=== PATIENT | male | born 1975 | race Caucasian/White ===

== ENCOUNTER 2020-03-09 21:32 | Observation (INO) | payer OTHER ==
[2020-03-09 22:23] LABS: Basophils # (A) 0.1 k/uL (0-0.2); Basophils % (A) 1 %; Eosinophils # (A) 0.2 k/uL (0-0.7); Eosinophils % (A) 1 %; HCT 51.5 % (39.0-53.0); HGB 17.6 gm/dL (13.0-17.5); Lymphocytes # (A) 4.6 k/uL (1.0-4.8); Lymphocytes % (A) 37 %; MCH 32.2 pg (25.0-35.0); MCHC 34.2 g/dL (31.0-37.0); Mean Platelet Volume 7.1; Monocytes # (A) 0.5 k/uL (0-1.0); Monocytes % (A) 4 %; Neutrophils # (A) 7.1 k/uL (1.3-7.7); Neutrophils % (A) 56 %; Platelet Count 348 k/uL (150-450); RBC 5.48 m/uL (4.30-5.90); RDW 13.1 % (11.5-15.5); WBC 12.5 k/uL (3.8-10.6)
[2020-03-09] MEDS ORDERED: NICOTINE 14MG/24HR PATCH TRANSDERM STA (22:24)
[2020-03-09 22:35] LABS: ALT 16 U/L (4-49); AST 32 U/L (17-59); African American GFR (CKD) >90 (>60 ml/min/1.73 sqM); Alkaline Phosphatase 70 U/L (38-126); Anion Gap 16 mmol/L; Blood Urea Nitrogen 10 mg/dL (9-20); Carbon Dioxide 21 mmol/L (22-30); Chloride 109 mmol/L (98-107); Glucose 100 mg/dL (74-99); Non-African American GFR(CKD) >90 (>60 ml/min/1.73 sqM); Potassium 3.9 mmol/L (3.5-5.1); Sodium 146 mmol/L (137-145); Total Bilirubin 0.6 mg/dL (0.2-1.3); Total Protein 7.8 g/dL (6.3-8.2)
[2020-03-09] MEDS ORDERED: HALOPERIDOL LACTATE 5 MG/ML 1 ML VIAL IVP STA (22:56)
[2020-03-09] MEDS ORDERED: diphenhydrAMINE 50 MG/ML 1 ML VIAL IVP STA (22:56)
[2020-03-09] MEDS ORDERED: LORazepam 2 MG/ML INJ IV STA (22:56)
[2020-03-09 23:00] LABS: Alcohol 331 mg/dL
[2020-03-10] MEDS ORDERED: NALOXONE 0.4 MG/ML 1 ML VIAL IV PRN (00:01)
--- NOTE | 2020-03-10 00:01 | ED ---
Psych HPI - General Chief Complaint: Psychiatric Symptoms Stated Complaint: Mental Health Time Seen by Provider: 03/09/20 21:45 Source: patient, police Mode of arrival: ambulatory - History of Present Illness Initial Comments: 44-year-old male with no reported past history presents emergency department accompanied by [facility] police for reported suicidal ideations and a ttempt. It was reported that the patient drinks daily, was drinking tonight and was having thoughts of suicide. His plan was to hang himself. He had made a noose however reports not placing the noose around his neck. It is unknown who called EMS however police arrived on scene and transferred the patient in. He states that he has been drinking daily. He quit his job today. Reports that he is likely from his . Patient has no children. Reports to feeling hopeless. Denies homicidal ideations or hallucinations. States he's been depressed for a significant period of time however never told anyone about it. Denies any other substance abuse. No alleviating, precipitating or modifying factors - Related Data Home Medications Medication Instructions Recorded Confirmed Acetaminophen [Tylenol] 1,000 mg PO Q4-6H PRN 03/10/20 03/10/20 Doxylamine Succinate [Unisom] 25 mg PO HS PRN 03/10/20 03/10/20 Omeprazole Magnesium [PriLOSEC OTC] 20 mg PO DAILY PRN 03/10/20 03/10/20 Previous Rx's Medication Instructions Recorded Escitalopram [Lexapro] 10 mg PO DAILY #30 tab 03/11/20 Folic Acid 1 mg PO DAILY@1200 #30 tab 03/11/20 Thiamine [Vitamin B-1] 100 mg PO DAILY #30 tab 03/11/20 Allergies Allergy/AdvReac Type Severity Reaction Status Date / Time No Known Allergies Allergy Verified 03/10/20 13:04 Review of Systems ROS Statement: Those systems with pertinent positive or pertinent negative responses have been documented in the HPI. ROS Other: All systems not noted in ROS Statement are negative. Past Medical History Past Medical History: No Reported History History of Any Multi-Drug Resistant Organisms: None Reported Past Surgical History: No Surgical Hx Reported Past Psychological History: Anxiety, Depression Smoking Status: Current every day smoker Past Alcohol Use History: Abuse, Daily Past Drug Use History: None Reported - Past Family History Mother History Unknown: Yes General Exam Limitations: no limitations General appearance: alert, appears intoxicated, anxious Head exam: Present: atraumatic, normocephalic, normal inspection Eye exam: Present: normal appearance, PERRL, EOMI. Absent: scleral icterus, conjunctival injection, periorbital swelling ENT exam: Present: normal exam, mucous membranes moist Neck exam: Present: normal inspection. Absent: tenderness, meningismus, lymphadenopathy Respiratory exam: Present: normal lung sounds bilaterally. Absent: respiratory distress, wheezes, rales, rhonchi, stridor Cardiovascular Exam: Present: normal rhythm, tachycardia, normal heart sounds. Absent: systolic murmur, diastolic murmur, rubs, gallop, clicks GI/Abdominal exam: Present: soft, normal bowel sounds. Absent: distended, tenderness, guarding, rebound, rigid Extremities exam: Present: normal inspection, full ROM, normal capillary refill. Absent: tenderness, pedal edema, joint swelling, calf tenderness Back exam: Present: normal inspection Neurological exam: Present: alert, oriented X3, CN II-XII intact Psychiatric exam: Present: depressed, agitated Skin exam: Present: warm, dry, intact, normal color. Absent: rash Course Vital Signs 03/09/20 03/10/20 21:44 00:52 Temperature 98.4 F 98.1 F Pulse Rate 117 H 99 Respiratory 18 18 Rate Blood Pressure 148/98 116/76 O2 Sat by Pulse 96 96 Oximetry Medical Decision Making - Medical Decision Making Upon arrival patient is placed in room 14. He is petitioned by the portable grinding machine operator. Patient admits to me that he is depressed and suicidal. Laboratory studies were conducted. Patient alcohol level is 313. Because of the significant elevation he was admitted to [facility]. Discussed the case with Corinne who accepted admission. I will place psychiatry on consult. Patient has a sitter at bedside. He was given 50 mg of Benadryl, 0.5 mg of Haldol and 2 mg Ativan for agitation. I will place him on [facility] protocol. Patient was transported to floor in stable condition - Lab Data Result diagrams: 03/11/20 08:04 03/11/20 08:04 Lab Results 03/09/20 03/09/20 03/09/20 Range/Units 22:08 22:08 23:50 WBC 12.5 H (3.8-10.6) k/uL RBC 5.48 (4.30-5.90) m/uL Hgb 17.6 H (13.0-17.5) gm/dL Hct 51.5 (39.0-53.0) % MCV 94.0 (80.0-100.0) fL MCH 32.2 (25.0-35.0) pg MCHC 34.2 (31.0-37.0) g/dL RDW 13.1 (11.5-15.5) % Plt Count 348 (150-450) k/uL Neutrophils % 56 % Lymphocytes % 37 % Monocytes % 4 % Eosinophils % 1 % Basophils % 1 % Neutrophils # 7.1 (1.3-7.7) k/uL Lymphocytes # 4.6 (1.0-4.8) k/uL Monocytes # 0.5 (0-1.0) k/uL Eosinophils # 0.2 (0-0.7) k/uL Basophils # 0.1 (0-0.2) k/uL Sodium 146 H (137-145) mmol/L Potassium 3.9 (3.5-5.1) mmol/L Chloride 109 H (98-107) mmol/L Carbon Dioxide 21 L (22-30) mmol/L Anion Gap 16 mmol/L BUN 10 (9-20) mg/dL Creatinine 0.88 (0.66-1.25) mg/dL Est GFR (CKD-EPI)AfAm >90 (>60 ml/min/1.73 sqM) Est GFR (CKD-EPI)NonAf >90 (>60 ml/min/1.73 sqM) Glucose 100 H (74-99) mg/dL Calcium 10.0 (8.4-10.2) mg/dL Total Bilirubin 0.6 (0.2-1.3) mg/dL AST 32 (17-59) U/L ALT 16 (4-49) U/L Alkaline Phosphatase 70 (38-126) U/L Total Protein 7.8 (6.3-8.2) g/dL Albumin 5.0 (3.5-5.0) g/dL Urine Color Light Yellow Urine Appearance Clear (Clear) Urine pH 6.0 (5.0-8.0) Ur Specific [place] 1.004 (1.001-1.035) Urine Protein Negative (Negative) Urine Glucose (UA) Negative (Negative) Urine Ketones Negative (Negative) Urine Blood Negative (Negative) Urine Nitrite Negative (Negative) Urine Bilirubin Negative (Negative) Urine Urobilinogen <2.0 (<2.0) mg/dL Ur Leukocyte Esterase Moderate H (Negative) Urine RBC 3 (0-5) /hpf Urine WBC <1 (0-5) /hpf Urine Bacteria Rare H (None) /hpf Urine Opiates Screen Not Detected (NotDetected) Ur Oxycodone Screen Not Detected (NotDetected) Urine Methadone Screen Not Detected (NotDetected) Ur Propoxyphene Screen Not Detected (NotDetected) Ur Barbiturates Screen Not Detected (NotDetected) U Tricyclic Antidepress Not Detected (NotDetected) Ur Phencyclidine Scrn Not Detected (NotDetected) Ur Amphetamines Screen Not Detected (NotDetected) U Methamphetamines Scrn Not Detected (NotDetected) U Benzodiazepines Scrn Not Detected (NotDetected) Urine Cocaine Screen Not Detected (NotDetected) U Marijuana (THC) Screen Not Detected (NotDetected) Serum Alcohol 331 H* mg/dL Disposition Clinical Impression: Suicidal ideation, Depression, Alcohol abuse Disposition: ADMITTED IP TO THIS [facility] Condition: Stable Is patient prescribed a controlled substance at d/c from ED?: No Decision to Admit Reason: Admit from EC Decision Date: 03/10/20 Decision Time: 00:00
[2020-03-10] MEDS ORDERED: LORazepam 2 MG/ML INJ IV PRN ×3 (00:03)
[2020-03-10] MEDS ORDERED: THIAMINE 100 MG/ML 2 ML VIAL IM ONE (00:30)
[2020-03-10 00:45] LABS: Appearance,Urine Clear (Clear); Bacteria,Urine Rare /hpf; Bilirubin,Urine Negative (Negative); Blood,Urine Negative (Negative); Color,Urine Light Yellow; Glucose,Urine (UA) Negative (Negative); Ketones,Urine Negative (Negative); Leukocyte Esterase,Urine Moderate (Negative); Nitrite,Urine Negative (Negative); Protein,Urine Negative (Negative); RBC,Urine 3 /hpf (0-5); Specific Gravity,Urine 1.004 (1.001-1.035); Urobilinogen,Urine <2.0 mg/dL (<2.0); WBC,Urine <1 /hpf (0-5)
[2020-03-10 00:50] LABS: Amphetamine Screen,Urine Not Detected (NotDetected); Barbiturate Screen,Urine Not Detected (NotDetected); Benzodiazepines Screen,Urine Not Detected (NotDetected); Cocaine Screen,Urine Not Detected (NotDetected); Methadone Screen, Urine Not Detected (NotDetected); Opiate Screen,Urine Not Detected (NotDetected); Oxycodone Screen, Urine Not Detected (NotDetected); Phencyclidine Screen,Urine Not Detected (NotDetected); Tricyclic Antidepressant,Urine Not Detected (NotDetected); Urn Cannabinoid Scrn Not Detected (NotDetected)
[2020-03-10] MEDS: SODIUM CHLORIDE 0.9% 1,000 ML IV SCH ×3 (02:08→20:51)
[2020-03-10] MEDS ORDERED: PANTOPRAZOLE 40 MG TABLET PO PRN (15:36)
[2020-03-10] MEDS ORDERED: TEMAZEPAM 15 MG CAP PO PRN (15:37)
[2020-03-10] MEDS ORDERED: HYDROcodone/APAP 5-325MG 1 EACH TAB PO PRN (15:37)
[2020-03-10] MEDS: THIAMINE 100 MG TAB PO SCH (17:13)
[2020-03-10 17:58] LABS: ALT 17 U/L (4-49); AST 40 U/L (17-59); African American GFR (CKD) >90 (>60 ml/min/1.73 sqM); Albumin 4.1 g/dL (3.5-5.0); Alkaline Phosphatase 64 U/L (38-126); Anion Gap 9 mmol/L; Blood Urea Nitrogen 14 mg/dL (9-20); Carbon Dioxide 25 mmol/L (22-30); Chloride 107 mmol/L (98-107); Glucose 89 mg/dL (74-99); Non-African American GFR(CKD) >90 (>60 ml/min/1.73 sqM); Potassium 4.2 mmol/L (3.5-5.1); Sodium 141 mmol/L (137-145); Total Bilirubin 0.9 mg/dL (0.2-1.3); Total Protein 6.5 g/dL (6.3-8.2)
[2020-03-10] MEDS: HEPARIN SODIUM,PORCINE 5,000 UNIT/ML 1 ML VIAL SQ SCH (20:51)
--- NOTE | 2020-03-10 23:25 | HP ---
HISTORY AND PHYSICAL DATE OF SERVICE: 03/10/2020 CHIEF COMPLAINT: Alcohol intoxication. HISTORY OF PRESENT ILLNESS: This 44-year-old gentleman with a past medical history of anxiety, depression, not being followed by any primary physician in the outpatient setting is brought by [facility] Police for reported suicidal ideations and attempt. The patient apparently drank heavily and having thoughts of suicide. The patient was planning to hang himself and he had a noose apparently placed on his neck. EMS was called and subsequently patient was taken to [facility] and admitted for further evaluation and treatment. The patient also had a petition placed. There is no history of any fever or rigors. No history of headache, loss of consciousness or seizures. Alcohol level on admission was 331. PAST MEDICAL HISTORY: History of anxiety, depression, history of alcohol abuse. MEDICATIONS: Medications are: 1. Prilosec OTC 20 mg daily. 2. Tylenol. 3. Unisom. ALLERGIES: Allergies are none. FAMILY HISTORY: No history of heart disease or strokes. SOCIAL HISTORY: History of smoking. Alcohol abuse daily. REVIEW OF SYSTEMS: ENT: No diminished hearing or diminished vision. CARDIOVASCULAR SYSTEM: No angina. RESPIRATORY SYSTEM: No cough or hemoptysis. GI: No nausea. : No dysuria. NERVOUS SYSTEM: No numbness or weakness. ALLERGY/IMMUNOLOGY: No asthma or hayfever. MUSCULOSKELETAL: As mentioned earlier. HEMATOLOGY: No history of anemia. ENDOCRINE: No history of diabetes or hypothyroidism. CONSTITUTIONAL: As mentioned earlier. DERMATOLOGY: Negative. RHEUMATOLOGY: Negative. PSYCHIATRY: As mentioned earlier. PHYSICAL EXAMINATION: The patient is alert and oriented x3. Pulse 98, blood pressure 127/77, respiration 18, temperature 98.1, pulse ox 96% on room air. HEENT: Conjunctivae normal. Oral mucosa moist. NECK: No jugular venous distention. No carotid bruit. No lymph node enlargement. CARDIOVASCULAR: S1, S2 muffled. No S3 or S4. RESPIRATORY: Breath sounds diminished at the bases. No rhonchi. No crackles. ABDOMEN: Soft, nontender. No mass palpable. LEGS: No edema, no swelling. NERVOUS SYSTEM: Higher functions as mentioned. Moves all 4 limbs. No focal motor or sensory deficits. LYMPHATICS: No lymphadenopathy of the neck, axillae or groin. SKIN: No ulcer, rash or bleeding. JOINTS: No active deforming arthropathy. LABS: Labs at this time, WBC 12.5, hemoglobin 17.6, sodium 146. UA noted. Drug screen is negative. Alcohol 331. ASSESSMENT: 1. Acute alcohol intoxication. 2. Depression with possible suicidal ideation. 3. Increased WBC. 4. Increased sodium. 5. History of anxiety, depression. 6. History of nicotine dependence. 7. History of EtOH. 8. FULL CODE. RECOMMENDATIONS AND DISCUSSION: This 44-year-old gentleman who presented with multiple complex medical issues, will monitor the patient closely. Continue the current medications, continue symptomatic treatment. Otherwise I would recommend psychiatric consultation and suicidal precautions. Repeat labs. Overall prognosis extremely guarded because of multiple complex medical issues. Recommend the patient to follow up with primary physician and alcohol rehab as well. putty worker and Case Management Team to be consulted. MELINA / JUDY: [id number] /
--- NOTE | 2020-03-11 01:16 | CONS ---
CONSULTATION PSYCHIATRIC CONSULTATION DATE OF CONSULTATION: 03/10/2020 REASON FOR CONSULTATION: Depression and suicidal ideation. HISTORY OF PRESENT ILLNESS: The patient is 44, , male who presented to the emergency room for alcohol intoxication and suicidal ideation. The patient stated that he was drinking heavily and his plan was to hang himself, but at that time he was intoxicated. The patient stated that he has been overwhelmed as his of 5 years has renal failure and currently on renal dialysis and previous she was in coma for a couple of days. 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 The patient stated that he has been verbally abusive to his , especially when he is drinking. Today he denied any suicidal ideation or intent or plan, but he stated that he does feel hopeless that he will be able to stop drinking. PAST PSYCHIATRIC HISTORY: The patient was in brief counseling 11 years ago after he got his drunk driving ticket. There is no previous suicidal attempt. SUBSTANCE ABUSE HISTORY: Alcohol: He started at age 16 and it has been getting worse over the last 7 months. He is drinking between 8 to 10 beers with couple of shots. The patient has one drunk driving tickets 11 years ago. He never had been in inpatient rehab program. The patient used to smoke marijuana and using cocaine 15 years ago. FAMILY HISTORY OF PSYCHIATRIC ILLNESS: Brother has drinking problem. There is no family member committed suicide. MEDICAL HISTORY: There is no acute medical problem. ALLERGIES: There is no known allergy. His blood alcohol level at the time of the arrival was 313. BRIEF SOCIAL HISTORY: The patient stated that he has been with his for 10 years, but they had been for 5 years. They have no children. His is late stage of renal failure and currently on dialysis. 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 Currently, he left his job. MENTAL STATUS EXAMINATION: The patient appears his stated age. He was alert. Fair hygiene and grooming. He gave good eye contact. He was lying in bed without any agitation. His speech is coherent and goal directed. He denied any suicidal or homicidal ideation or intent or plan and he stated "I do not have any firearm and I just want to live." His speech is fluent and coherent and goal directed. He reported that his mood is anxious. Affect is constricted. He denied any hallucination or delusional. Thought process is logical and goal directed. Memory and concentration are grossly intact. Judgment and insight are fair. IMPRESSION: 1. Alcohol use disorder. 2. Depressive disorder, NOS. Rule out alcohol induced depression. PLAN: At this time, patient does not meet any criteria for inpatient psychiatric admission. Please continue CIWA for alcohol withdrawal. I would recommend to start him on Lexapro 10 mg for anxiety and depression. gospel worker to gather further history from patient's . The patient did agree to be referred to [facility] outpatient for anxiety and alcohol use disorder. Psychiatry will sign off at this point, and please contact if any question. MMODL / IJN: [id number] /
[2020-03-11] MEDS ORDERED: PANTOPRAZOLE 40 MG TABLET PO SCH (07:30)
[2020-03-11] MEDS: THIAMINE 100 MG TAB PO SCH (08:42)
[2020-03-11] MEDS: SODIUM CHLORIDE 0.9% 1,000 ML IV SCH (08:49)
[2020-03-11] MEDS: HEPARIN SODIUM,PORCINE 5,000 UNIT/ML 1 ML VIAL SQ SCH (08:49)
[2020-03-11 08:57] LABS: Basophils % (A) 0 %; Eosinophils # (A) 0.1 k/uL (0-0.7); Eosinophils % (A) 2 %; HCT 41.3 % (39.0-53.0); Lymphocytes # (A) 2.5 k/uL (1.0-4.8); Lymphocytes % (A) 28 %; MCH 31.7 pg (25.0-35.0); MCHC 32.8 g/dL (31.0-37.0); MCV 96.6 fL (80.0-100.0); Mean Platelet Volume 7.5; Monocytes # (A) 0.6 k/uL (0-1.0); Monocytes % (A) 7 %; Neutrophils # (A) 5.5 k/uL (1.3-7.7); Neutrophils % (A) 63 %; Platelet Count 241 k/uL (150-450); RBC 4.27 m/uL (4.30-5.90); RDW 13.2 % (11.5-15.5); WBC 8.8 k/uL (3.8-10.6)
[2020-03-11] MEDS ORDERED: ESCITALOPRAM 10 MG TAB PO SCH (09:00)
[2020-03-11] MEDS ORDERED: NICOTINE 14MG/24HR PATCH TRANSDERM SCH (09:00)
[2020-03-11 09:16] LABS: African American GFR (CKD) >90 (>60 ml/min/1.73 sqM); Anion Gap 6 mmol/L; Blood Urea Nitrogen 13 mg/dL (9-20); Calcium 8.2 mg/dL (8.4-10.2); Carbon Dioxide 24 mmol/L (22-30); Chloride 110 mmol/L (98-107); Glucose 121 mg/dL (74-99); Non-African American GFR(CKD) >90 (>60 ml/min/1.73 sqM); Potassium 3.9 mmol/L (3.5-5.1); Sodium 140 mmol/L (137-145)
[2020-03-11 09:17] LABS: HGB 13.6 gm/dL (13.0-17.5)
[2020-03-11 10:24] VITALS: BP 138/94; PULSE 79; RESP 18; TEMP 97.8
[2020-03-11] MEDS ORDERED: FOLIC ACID 1 MG TAB PO SCH (12:00)
--- NOTE | 2020-03-11 12:33 | P.DS ---
Providers Date of admission: 03/10/20 00:01 Attending physician: Harriet Vaughn Consults: 03/10/20 00:02 Consult Physician Urgent Consulting Provider: Leonie Rizzo Consult Reason/Comments: acute depression, suicide attempt Do you want consulting provider notified?: Already Contacted Primary care physician: Stated None Hospital Course: 44-year-old male came in with severe depression all call abuse and monitored for all call withdrawal patient. Patient doesn't have any withdrawals at this time. Patient was also having active thoughts of suicide on admission because of which the psychiatric valid the patient and they are not recommending any inpatient psychiatric hospitalization. Extensive counseling regarding alcohol use was provided patient withdrawals at much better. Patient will be discharged today. PHYSICAL EXAMINATION: GENERAL: The patient is alert and oriented x3, not in any acute distress. Well developed, well nourished. HEENT: Pupils are round and equally reacting to light. EOMI. No scleral icterus. No conjunctival pallor. Normocephalic, atraumatic. No pharyngeal erythema. No thyromegaly. CARDIOVASCULAR: S1 and S2 present. No murmurs, rubs, or gallops. PULMONARY: Chest is clear to auscultation, no wheezing or crackles. ABDOMEN: Soft, nontender, nondistended, normoactive bowel sounds. No palpable organomegaly. MUSCULOSKELETAL: No joint swelling or deformity. EXTREMITIES: No cyanosis, clubbing, or pedal edema. NEUROLOGICAL: Gross neurological examination did not reveal any focal deficits. SKIN: No rashes. Please refer to documentation from Dr. Vaughn for other medical problems that were addressed during this hospitalization Patient Condition at Discharge: Stable Plan - Discharge Summary Discharge Rx Participant: No New Discharge Prescriptions: New Folic Acid 1 mg PO DAILY@1200 #30 tab Thiamine [Vitamin B-1] 100 mg PO DAILY #30 tab Escitalopram [Lexapro] 10 mg PO DAILY #30 tab Continue Omeprazole Magnesium [PriLOSEC OTC] 20 mg PO DAILY PRN PRN Reason: GERDS Acetaminophen [Tylenol] 1,000 mg PO Q4-6H PRN PRN Reason: Pain Or Fever > 100.5 Doxylamine Succinate [Unisom] 25 mg PO HS PRN PRN Reason: SLEEP Discharge Medication List Acetaminophen [Tylenol] 1,000 mg PO Q4-6H PRN 09/07/20 [History] Doxylamine Succinate [Unisom] 25 mg PO HS PRN 03/10/20 [History] Omeprazole Magnesium [PriLOSEC OTC] 20 mg PO DAILY PRN 03/10/20 [History] Escitalopram [Lexapro] 10 mg PO DAILY #30 tab 03/11/20 [Rx] Folic Acid 1 mg PO DAILY@1200 #30 tab 03/11/20 [Rx] Thiamine [Vitamin B-1] 100 mg PO DAILY #30 tab 03/11/20 [Rx] Follow up Appointment(s)/Referral(s): Sara Schulz MD [REFERRING] - 1 Week (Please call to make appointment) Patient Instructions/Handouts: Depression (DC), Alcohol Intoxication (DC) Discharge Disposition: HOME SELF-CARE
== END 2020-03-11 12:56 | disposition home or self-care (01) ==
LOC: EC 21:32 → 4SSUR 03-10 00:01
PROVIDERS: ADMIT Hospitalist; ATTEND Hospitalist
DX: F10.129 Alcohol abuse with intoxication, unspecified (principal); F32.9 Major depressive disorder, single episode, unspecified; R45.851 Suicidal ideations; F41.9 Anxiety disorder, unspecified; R45.1 Restlessness and agitation; Y90.8 Blood alcohol level of 240 mg/100 ml or more; F17.200 Nicotine dependence, unspecified, uncomplicated; Z79.899 Other long term (current) drug therapy
CPT/HCPCS: 96376; 96361 ×2; 82075; 96372; 96374; 96375; 99285; 36415; 80053 ×2; 80048; 85025 ×2; 81001; 80306; 80320; G0378 ×2; S4990 ×2; J2060 ×2; J1200; J1630; J3411

== ENCOUNTER 2020-07-11 19:09 | Emergency (ER) | payer OTHER ==
[2020-07-11 19:24] VITALS: BP 133/98; PULSE 120; RESP 19; TEMP 98
--- NOTE | 2020-07-11 19:39 | ED ---
General Adult HPI - General Chief complaint: Psychiatric Symptoms Stated complaint: mental health Time Seen by Provider: 07/11/20 19:19 Source: patient, police, RN notes reviewed, old records reviewed Mode of arrival: ambulatory - History of Present Illness Initial comments: 44-year-old male presenting under petition for psychiatric evaluation. He states he's lost his job, his states that she wants a divorce him. He states he was attempting he denies current suicidal ideation or plan. According to police he had made suicidal comments and was somewhat agitated but overall cooperative. Patient is cooperative during the time my initial history and physical. - Related Data Home Medications Medication Instructions Recorded Confirmed Acetaminophen [Tylenol] 1,000 mg PO Q4-6H PRN 03/10/20 03/10/20 Doxylamine Succinate [Unisom] 25 mg PO HS PRN 03/10/20 03/10/20 Omeprazole Magnesium [PriLOSEC OTC] 20 mg PO DAILY PRN 03/10/20 03/10/20 Previous Rx's Medication Instructions Recorded Escitalopram [Lexapro] 10 mg PO DAILY #30 tab 03/11/20 Folic Acid 1 mg PO DAILY@1200 #30 tab 03/11/20 Thiamine [Vitamin B-1] 100 mg PO DAILY #30 tab 03/11/20 Allergies Allergy/AdvReac Type Severity Reaction Status Date / Time No Known Allergies Allergy Verified 07/11/20 19:25 Review of Systems ROS Statement: Those systems with pertinent positive or pertinent negative responses have been documented in the HPI. ROS Other: All systems not noted in ROS Statement are negative. Past Medical History Past Medical History: No Reported History History of Any Multi-Drug Resistant Organisms: None Reported Past Surgical History: No Surgical Hx Reported Past Anesthesia/Blood Transfusion Reactions: No Reported Reaction Past Psychological History: Anxiety, Depression Smoking Status: Current every day smoker Past Alcohol Use History: Abuse, Daily Past Drug Use History: None Reported - Past Family History Mother History Unknown: Yes General Exam General appearance: alert, in no apparent distress Head exam: Present: atraumatic, normocephalic Eye exam: Present: normal appearance ENT exam: Present: normal exam, mucous membranes dry Neck exam: Present: normal inspection. Absent: meningismus Respiratory exam: Present: normal lung sounds bilaterally. Absent: respiratory distress, wheezes Cardiovascular Exam: Present: regular rate, normal rhythm GI/Abdominal exam: Present: soft. Absent: distended, tenderness, guarding Extremities exam: Present: normal inspection, normal capillary refill. Absent: pedal edema Neurological exam: Present: alert, oriented X3, CN II-XII intact. Absent: motor sensory deficit Psychiatric exam: Present: agitated. Absent: suicidal ideation Skin exam: Present: warm, dry, intact. Absent: cyanosis, diaphoretic Course Vital Signs 07/11/20 19:20 Temperature 98 F Pulse Rate 120 H Respiratory 19 Rate Blood Pressure 133/98 O2 Sat by Pulse 99 Oximetry Medical Decision Making - Medical Decision Making Patient has been evaluated by EPS and felt to be safe for discharge. He's given outpatient referral. He does contract to safety. I reevaluated the patient who denies any suicidal thoughts or suicidal plan. Disposition Clinical Impression: Depression Disposition: HOME SELF-CARE Condition: Fair Instructions (If sedation given, give patient instructions): Depression (ED) Additional Instructions: Please follow up with [facility] Is patient prescribed a controlled substance at d/c from ED?: No Referrals: None,Stated [Primary Care Provider] - 1-2 days Fernando Caal [STAFF PHYSICIAN] - 1-2 days Time of Disposition: 20:22
== END 2020-07-11 20:25 | disposition home or self-care (01) ==
LOC: EC 19:09
DX: F32.9 Major depressive disorder, single episode, unspecified (principal); F17.200 Nicotine dependence, unspecified, uncomplicated; Z56.0 Unemployment, unspecified
CPT/HCPCS: 82075; 99285

== ENCOUNTER 2022-01-22 20:49 | Emergency (ER) | payer OTHER ==
[2022-01-22 21:00] VITALS: BP 111/65; PULSE 99; RESP 19; TEMP 98
--- NOTE | 2022-01-22 22:08 | ED ---
Alcohol HPI - General Chief Complaint: Alcohol Stated Complaint: Evaluation,ETOH Time Seen by Provider: 01/22/22 21:28 Source: patient Mode of arrival: ambulatory - History of Present Illness Initial Comments: this patient is a 46-year-old man brought by police after he was found sleeping in public. Patient admits that he had been drinking alcohol and fell sleep. Patient denies any medical complaint. He did not have any injury. 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 Recent Trauma: No Associated Symptoms: denies other symptoms Treatments Prior to Arrival: none - Related Data Home Medications Medication Instructions Recorded Confirmed Acetaminophen [Tylenol] 1,000 mg PO Q4-6H PRN 03/10/20 03/10/20 Doxylamine Succinate [Unisom] 25 mg PO HS PRN 03/10/20 03/10/20 Omeprazole Magnesium [PriLOSEC OTC] 20 mg PO DAILY PRN 03/10/20 03/10/20 Previous Rx's Medication Instructions Recorded Escitalopram [Lexapro] 10 mg PO DAILY #30 tab 03/11/20 Folic Acid 1 mg PO DAILY@1200 #30 tab 03/11/20 Thiamine [Vitamin B-1] 100 mg PO DAILY #30 tab 03/11/20 Allergies Allergy/AdvReac Type Severity Reaction Status Date / Time No Known Allergies Allergy Verified 01/22/22 21:00 Review of Systems ROS Statement: Those systems with pertinent positive or pertinent negative responses have been documented in the HPI. ROS Other: All systems not noted in ROS Statement are negative. Constitutional: Denies: fever, chills Respiratory: Denies: cough, dyspnea Cardiovascular: Denies: chest pain, palpitations Gastrointestinal: Denies: abdominal pain, vomiting, diarrhea Neurological: Denies: headache, weakness Past Medical History Past Medical History: No Reported History History of Any Multi-Drug Resistant Organisms: None Reported Past Surgical History: No Surgical Hx Reported Past Anesthesia/Blood Transfusion Reactions: No Reported Reaction Past Psychological History: Anxiety, Depression Smoking Status: Current every day smoker Past Alcohol Use History: Abuse, Daily Past Drug Use History: None Reported - Past Family History Mother History Unknown: Yes General Exam General appearance: alert, in no apparent distress Head exam: Present: atraumatic, normocephalic Eye exam: Present: normal appearance. Absent: scleral icterus, conjunctival injection Neck exam: Present: normal inspection Respiratory exam: Present: normal lung sounds bilaterally. Absent: respiratory distress, wheezes, rales, rhonchi, stridor Cardiovascular Exam: Present: regular rate, normal rhythm, normal heart sounds. Absent: systolic murmur, diastolic murmur, rubs, gallop GI/Abdominal exam: Present: soft. Absent: distended, tenderness, guarding, rebound, rigid, mass Extremities exam: Present: normal inspection, normal capillary refill. Absent: pedal edema, calf tenderness Back exam: Present: normal inspection. Absent: CVA tenderness (R), CVA tenderness (L) Neurological exam: Present: alert Skin exam: Present: warm, dry, intact, normal color. Absent: rash Course Vital Signs 01/22/22 20:57 Temperature 98 F Pulse Rate 99 Respiratory 19 Rate Blood Pressure 111/65 O2 Sat by Pulse 99 Oximetry Disposition Clinical Impression: Alcoholic intoxication Disposition: HOME SELF-CARE Condition: Fair Instructions (If sedation given, give patient instructions): Alcohol Intoxication (ED) Is patient prescribed a controlled substance at d/c from ED?: No Referrals: None,Stated [Primary Care Provider] - 1-2 days
== END 2022-01-22 23:45 | disposition home or self-care (01) ==
LOC: EC 20:49
DX: F10.129 Alcohol abuse with intoxication, unspecified (principal); F41.9 Anxiety disorder, unspecified; F32.A Depression, unspecified; F17.200 Nicotine dependence, unspecified, uncomplicated; Z79.899 Other long term (current) drug therapy
CPT/HCPCS: 99284

== ENCOUNTER 2022-04-01 08:54 | Emergency (ER) | payer OTHER ==
[2022-04-01 08:59] VITALS: TEMP 98
--- NOTE | 2022-04-01 09:43 | ED ---
General Adult HPI - General Chief complaint: Recheck/Abnormal Lab/Rx Stated complaint: rib pain Time Seen by Provider: 04/01/22 09:18 Source: patient, RN notes reviewed Mode of arrival: ambulatory Limitations: no limitations - History of Present Illness Initial comments: Patient is a pleasant 46-year-old male presenting to the emergency department with right rib pain. Onset of symptoms was around 48 hours ago. Patient did have a fall from standing. Patient has discomfort of the right side since that time. Discomfort increases with cough and position changes. No history of similar symptoms previously. No dyspnea. - Related Data Home Medications Medication Instructions Recorded Confirmed Acetaminophen [Tylenol] 1,000 mg PO Q4-6H PRN 03/10/20 03/10/20 Doxylamine Succinate [Unisom] 25 mg PO HS PRN 03/10/20 03/10/20 Omeprazole Magnesium [PriLOSEC OTC] 20 mg PO DAILY PRN 03/10/20 03/10/20 Previous Rx's Medication Instructions Recorded Escitalopram [Lexapro] 10 mg PO DAILY #30 tab 03/11/20 Folic Acid 1 mg PO DAILY@1200 #30 tab 03/11/20 Thiamine [Vitamin B-1] 100 mg PO DAILY #30 tab 03/11/20 Ibuprofen [Motrin] 600 mg PO Q6HR PRN #20 tab 04/01/22 Allergies Allergy/AdvReac Type Severity Reaction Status Date / Time No Known Allergies Allergy Verified 04/01/22 08:58 Review of Systems ROS Statement: Those systems with pertinent positive or pertinent negative responses have been documented in the HPI. ROS Other: All systems not noted in ROS Statement are negative. Constitutional: Denies: fever Eyes: Denies: eye pain ENT: Denies: ear pain Respiratory: Reports: as per HPI Cardiovascular: Denies: palpitations Endocrine: Denies: fatigue Gastrointestinal: Denies: abdominal pain Genitourinary: Denies: dysuria Musculoskeletal: Denies: back pain Skin: Denies: rash Neurological: Denies: weakness Past Medical History Past Medical History: No Reported History History of Any Multi-Drug Resistant Organisms: None Reported Past Surgical History: No Surgical Hx Reported Past Anesthesia/Blood Transfusion Reactions: No Reported Reaction Past Psychological History: Anxiety, Depression Smoking Status: Current every day smoker Past Alcohol Use History: Abuse, Daily Past Drug Use History: None Reported - Past Family History Mother History Unknown: Yes General Exam Limitations: no limitations General appearance: alert, in no apparent distress Head exam: Present: normocephalic Eye exam: Present: normal appearance Neck exam: Present: normal inspection. Absent: tenderness Respiratory exam: Present: normal lung sounds bilaterally, chest wall tenderness (Right lateral chest wall) Cardiovascular Exam: Present: regular rate, normal rhythm GI/Abdominal exam: Present: soft, normal bowel sounds. Absent: distended, tenderness, guarding, rebound, rigid, pulsatile mass Extremities exam: Present: normal inspection Back exam: Absent: vertebral tenderness Neurological exam: Present: alert Psychiatric exam: Present: normal affect, normal mood Skin exam: Present: normal color Course Vital Signs 04/01/22 08:56 Temperature 98 F Pulse Rate 110 H Respiratory 20 Rate Blood Pressure 119/88 O2 Sat by Pulse 99 Oximetry Medical Decision Making - Medical Decision Making Patient reevaluated and updated - Radiology Data Radiology results: image reviewed (Questionable hairline fracture posterior 10th rib on the right) Disposition Clinical Impression: Rib fracture Disposition: HOME SELF-CARE Condition: Stable Instructions (If sedation given, give patient instructions): Rib Fracture (ED) Additional Instructions: Prescription sent to pharmacy. Follow-up with primary care physician in the next couple days for recheck. Return for difficulty breathing, fevers, worsening symptoms or other concerns. Prescriptions: Ibuprofen [Motrin] 600 mg PO Q6HR PRN #20 tab PRN Reason: Pain Is patient prescribed a controlled substance at d/c from ED?: No Referrals: Trev Zuñiga MD [STAFF PHYSICIAN] - 1-2 days Time of Disposition: 10:57
--- NOTE | 2022-04-01 10:37 | XR ---
EXAMINATION TYPE: XR ribs RT w pa chest xray DATE OF EXAM: 04/01/2022 COMPARISON: NONE TECHNIQUE: PA and lateral views submitted. HISTORY: Pain FINDINGS: Lungs are clear. No sizable pneumothorax or consolidation. No pleural effusion. Heart is enlarged. No overt failure. There is a subtle deformity involving the posterior lateral left 10th rib. IMPRESSION: 1. Findings suspicious for hairline fracture posterior lateral left 10th rib correlate with point ten derness for confirmation.
[2022-04-01] MEDS ORDERED: ACET/COD 300 MG/30 MG STARTER PACK 6 TAB BTL PO STA (10:56)
[2022-04-01] MEDS ORDERED: KETOROLAC 15 MG/ML 1 ML VIAL IM STA (10:56)
[2022-04-01 11:19] VITALS: BP 117/84; PULSE 95; RESP 16
== END 2022-04-01 11:19 | disposition home or self-care (01) ==
LOC: EC 08:54
DX: S22.31XA Fracture of one rib, right side, initial encounter for closed fracture (principal); F17.200 Nicotine dependence, unspecified, uncomplicated; W19.XXXA Unspecified fall, initial encounter
CPT/HCPCS: 71101; 99283; 96372; J1885